=== PATIENT | male | born 1970 | race Caucasian/White ===

== ENCOUNTER 2019-01-14 10:24 | Emergency (ER) | payer OTHER ==
[2019-01-14 10:55] VITALS: TEMP 98.6; BMI 29.1
[2019-01-14 12:26] LABS: BASO % 1.2 % (0-2.0); EOS % 2.2 % (0-4.5); HEMATOCRIT 46.4 % (35.4-49); HEMOGLOBIN 15.5 GM/dL (11.7-16.9); LYMPH % 30.6 % (8-40); MCH 29.7 pg (25.7-33.7); MCHC 33.3 g/dl (32.0-35.9); MEAN CELL VOLUME 89.3 fl (80-96); MEAN PLT VOLUME 8.2 fl (7.5-11.1); MONO % 5.5 % (3.8-10.2); NEUT % 60.5 % (42.8-82.8); PLATELET COUNT 374 K/MM3 (134-434); RDW 13.7 % (11.9-15.9); WHITE BLOOD COUNT 6.9 K/mm3 (4.0-10.0)
[2019-01-14 12:33] LABS: PH,URINE 5.5 (5.0-8.0); URINE APPEARANCE CLEAR; URINE BILIRUBIN NEGATIVE (NEGATIVE); URINE COLOR YELLOW; URINE GLUCOSE (UA) NEGATIVE (NEGATIVE); URINE KETONE NEGATIVE (NEGATIVE); URINE LEUK ESTERASE NEGATIVE (NEGATIVE); URINE NITRITE NEGATIVE (NEGATIVE); URINE PROTEIN NEGATIVE (NEGATIVE); URINE UROBILINOGEN 0.2 mg/dL (0.2-1.0)
[2019-01-14 12:40] LABS: COCAINE, UR NEGATIVE ng/ml (CUTOFF=300); METHADONE, UR NEGATIVE ng/ml (CUTOFF=300); OPIATES, URI NEGATIVE ng/ml (CUTOFF=300); PHENCYCLIDINE,URINE NEGATIVE ng/ml (CUTOFF=25); URINE AMPHETAMINES NEGATIVE ng/ml (CUTOFF=500); URINE BARBITURATES NEGATIVE ng/ml (CUTOFF=200); URINE BENZODIAZEPINES NEGATIVE ng/ml (CUTOFF=200)
[2019-01-14 12:41] LABS: INR 1.1 (0.83-1.09)
[2019-01-14 13:00] LABS: ALBUMIN 3.8 g/dl (3.4-5.0); ALK PHOS 137 U/L (45-117); ANION GAP 6 MMOL/L (8-16); BILIRUBIN,TOTAL 0.2 mg/dL (0.2-1); BLOOD UREA NITROGEN 24 mg/dL (7-18); CALCIUM 9.3 mg/dL (8.5-10.1); CHLORIDE 106 mmol/L (98-107); CO2 26 mmol/L (21-32); CREATININE 0.9 mg/dL (0.55-1.3); GLUCOSE,RANDOM 100 mg/dL (74-106); MAGNESIUM 2.6 mg/dL (1.8-2.4); POTASSIUM 4.4 mmol/L (3.5-5.1); SGOT/AST 10 U/L (15-37); SGPT/ALT 36 U/L (13-61); SODIUM 138 mmol/L (136-145); TOT PROT 7.8 g/dl (6.4-8.2)
--- NOTE | 2019-01-14 13:10 | EKG ---
Test Reason : Blood Pressure : / mmHG Vent. Rate : 065 BPM Atrial Rate : 065 BPM P-R Int : 158 ms QRS Dur : 090 ms QT Int : 374 ms P-R-T Axes : 040 -21 -02 degrees QTc Int : 388 ms NORMAL SINUS RHYTHM INFERIOR INFARCT , AGE UNDETERMINED ABNORMAL ECG NO PREVIOUS ECGS AVAILABLE Confirmed by TRISHA ORANTES MD ([id number]) on 01/14/2019 1:10:29 PM Referred By: MR Confirmed By:TRISHA ORANTES MD
--- NOTE | 2019-01-14 15:16 | PDOC ---
History of Present Illness - General Chief Complaint: Back Pain Stated Complaint: BACK PAIN Time Seen by Provider: 01/14/19 11:22 History Source: Patient Exam Limitations: No Limitations - History of Present Illness Initial Comments: 01/14/19 14:21 48-year-old male with history of chronic low back pain and dyslipidemia presents to ED for "checkup". Patient states actively uses cocaine and frequently is concern about illnesses and cardiac disease due to his lifestyle. Patient has no specific complaint currently including chest pain, palpitations, headache, difficulty breathing, change in bowel or change in urine pattern. Patient also denies lower extremity edema and states has not seen a doctor in over a year. Patient became concerned when he he attended a friend's over the past few weeks after overdosing. Timing/Duration: other Associated Symptoms: reports: denies symptoms Past History - Travel Traveled outside of the country in the last 30 days: No Close contact w/someone who was outside of country & ill: No - Past Medical History Allergies/Adverse Reactions: Allergies Allergy/AdvReac Type Severity Reaction Status Date / Time No Known Allergies Allergy Verified 01/14/19 10:55 Home Medications: Ambulatory Orders Atorvastatin Ca [Lipitor] 10 mg PO HS 01/14/19 COPD: No - Immunization History Immunization Up to Date: (UNKNOWN) - Suicide/Smoking/Psychosocial Hx Smoking History: Never smoked Hx Alcohol Use: No Drug/Substance Use Hx: No Patient Lives Alone: No Lives with/in: spouse/SO Review of Systems - Review of Systems Able to Perform ROS?: Yes Constitutional: No: Symptoms Reported HEENTM: No: Symptoms Reported Respiratory: No: Symptoms reported Cardiac (ROS): No: Symptoms Reported ABD/GI: No: Symptoms Reported : No: Symptoms Reported Musculoskeletal: Yes: Back Pain Integumentary: No: Symptoms Reported Neurological: No: Symptoms reported Psychiatric: Yes: Anxiety, Stressors Hematologic/Lymphatic: No: Symptoms Reported *Physical Exam - Vital Signs Last Vital Signs Temp Pulse Resp BP Pulse Ox 98.6 F 75 17 102/72 98 01/14/19 10:50 01/14/19 12:11 01/14/19 12:11 01/14/19 12:11 01/14/19 12:11 - Physical Exam General Appearance: Yes: Nourished, Appropriately Dressed. No: Apparent Distress HEENT: positive: Pharynx Normal. negative: Pale Conjunctivae Neck: positive: Normal Thyroid, Supple Respiratory/Chest: positive: Lungs Clear, Normal Breath Sounds. negative: Chest Tender, Respiratory Distress, Accessory Muscle Use Cardiovascular: positive: Regular Rhythm, Regular Rate. negative: Murmur Gastrointestinal/Abdominal: positive: Soft. negative: Tenderness Musculoskeletal: negative: CVA Tenderness Extremity: positive: Normal Capillary Refill. negative: Pedal Edema Integumentary: positive: Normal Color, Warm, Moist Neurologic: positive: Motor Strength 5/5 (ambulatory). negative: Normal Mood/ Affect (anxious) Heart Score/ECG Review - ECG Intrepretation Rhythm: Regular Rhythm (Rate 65 normal sinus rhythm. Intervals are regular. No ST elevation or depression.) ED Treatment Course - LABORATORY CBC & Chemistry Diagram: 01/14/19 12:06 01/14/19 12:06 - ADDITIONAL ORDERS Additional order review: Laboratory Results 01/14/19 01/14/19 01/14/19 12:06 12:06 12:06 PT with INR INR Sodium 138 Potassium 4.4 Chloride 106 Carbon Dioxide 26 Anion Gap 6 L BUN 24 H Creatinine 0.9 Est GFR (CKD-EPI)AfAm 117.47 Est GFR (CKD-EPI)NonAf 101.35 Random Glucose 100 Calcium 9.3 Magnesium 2.6 H Total Bilirubin 0.2 AST 10 L ALT 36 Alkaline Phosphatase 137 H Creatine Kinase 104 Troponin I < 0.02 Total Protein 7.8 Albumin 3.8 Urine Color Yellow Urine Appearance Clear Urine pH 5.5 Ur Specific [place] 1.022 Urine Protein Negative Urine Glucose (UA) Negative Urine Ketones Negative Urine Blood Negative Urine Nitrite Negative Urine Bilirubin Negative Urine Urobilinogen 0.2 Ur Leukocyte Esterase Negative Opiates Screen Negative Methadone Screen Negative Barbiturate Screen Negative Phencyclidine Screen Negative Ur Amphetamines Screen Negative MDMA (Ecstasy) Screen Negative Benzodiazepines Screen Negative Cocaine Screen Negative U Marijuana (THC) Screen Negative 01/14/19 12:06 PT with INR 13.00 INR 1.10 H Sodium Potassium Chloride Carbon Dioxide Anion Gap BUN Creatinine Est GFR (CKD-EPI)AfAm Est GFR (CKD-EPI)NonAf Random Glucose Calcium Magnesium Total Bilirubin AST ALT Alkaline Phosphatase Creatine Kinase Troponin I Total Protein Albumin Urine Color Urine Appearance Urine pH Ur Specific [place] Urine Protein Urine Glucose (UA) Urine Ketones Urine Blood Urine Nitrite Urine Bilirubin Urine Urobilinogen Ur Leukocyte Esterase Opiates Screen Methadone Screen Barbiturate Screen Phencyclidine Screen Ur Amphetamines Screen MDMA (Ecstasy) Screen Benzodiazepines Screen Cocaine Screen U Marijuana (THC) Screen 01/14/19 12:06 RBC 5.20 MCV 89.3 MCHC 33.3 RDW 13.7 MPV 8.2 Neutrophils % 60.5 Lymphocytes % 30.6 Monocytes % 5.5 Eosinophils % 2.2 Basophils % 1.2 Medical Decision Making - Medical Decision Making 01/14/19 14:29 Plan: Patient concerned for his health since he went to 2 friend's recently due to overdosing from cocaine which he actively uses. Exam. Blood pressure initially elevated in triage. Repeated 2 and within normal limits. Extremely anxious upon my arrival Plan: Labs EKG chest x-ray and urine ordered 01/14/19 15:31 Selected Entries 01/14/19 01/14/19 12:11 15:21 Blood Pressure 102/72 107/69 [Right Arm] 01/14/19 15:31 Laboratory Tests 01/14/19 01/14/19 01/14/19 12:06 12:06 12:06 WBC 6.9 Hgb 15.5 Hct 46.4 Absolute Neuts (auto) 4.2 PT with INR 13.00 INR 1.10 H Sodium 138 Potassium 4.4 Chloride 106 Carbon Dioxide 26 Anion Gap 6 L BUN 24 H Creatinine 0.9 Random Glucose 100 Calcium 9.3 AST 10 L ALT 36 Alkaline Phosphatase 137 H Creatine Kinase 104 Troponin I < 0.02 Total Protein 7.8 Albumin 3.8 Urine Ketones Urine Bilirubin Ur Leukocyte Esterase Opiates Screen Methadone Screen Barbiturate Screen Phencyclidine Screen Ur Amphetamines Screen MDMA (Ecstasy) Screen Benzodiazepines Screen Cocaine Screen U Marijuana (THC) Screen 01/14/19 01/14/19 12:06 12:06 WBC Hgb Hct Absolute Neuts (auto) PT with INR INR Sodium Potassium Chloride Carbon Dioxide Anion Gap BUN Creatinine Random Glucose Calcium AST ALT Alkaline Phosphatase Creatine Kinase Troponin I Total Protein Albumin Urine Ketones Negative Urine Bilirubin Negative Ur Leukocyte Esterase Negative Opiates Screen Negative Methadone Screen Negative Barbiturate Screen Negative Phencyclidine Screen Negative Ur Amphetamines Screen Negative MDMA (Ecstasy) Screen Negative Benzodiazepines Screen Negative Cocaine Screen Negative U Marijuana (THC) Screen Negative pt remains asymptomatic, ate, and requesting to go home. *DC/Admit/Observation/Transfer Diagnosis at time of Disposition: Chronic back pain - Discharge Dispostion Disposition: HOME Condition at time of disposition: Good - Referrals Referrals: Cassie Escamilla MD [Primary Care Provider] - - Patient Instructions Printed Discharge Instructions: Heart-Healthy Diet Additional Instructions: Your blood work and urine were negative. Chest x-ray also was negative. I do recommend adding exercise to your lifestyle and avoid illicit drug use. - Post Discharge Activity
[2019-01-14 15:22] VITALS: BP 107/69; PULSE 74
== END 2019-01-14 15:23 | disposition home or self-care (01) ==
LOC: JER 10:24
DX: M54.89 Other dorsalgia (principal); G89.29 Other chronic pain; E78.5 Hyperlipidemia, unspecified
CPT/HCPCS: 36415; 71046-TC-FY; 80053; 80307; 81003; 82550; 83735; 84484; 85025; 85610; 93005; 93010; 99282-25

== ENCOUNTER 2019-07-28 10:38 | Emergency (ER) | payer SELFPAY ==
[2019-07-28 10:48] VITALS: BP 119/77; PULSE 80; TEMP 98.3; BMI 25.0
--- NOTE | 2019-07-28 11:48 | PDOC ---
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 Past History - Past Medical History Allergies/Adverse Reactions: Allergies Allergy/AdvReac Type Severity Reaction Status Date / Time No Known Allergies Allergy Verified 07/28/19 10:48 Home Medications: Ambulatory Orders Atorvastatin Ca [Lipitor] 10 mg PO HS 01/14/19 Cyclobenzaprine HCl [Flexeril 10 mg] 10 mg PO HS PRN #10 tablet 07/28/19 Ibuprofen [Motrin -] 600 mg PO TID #30 tablet 07/28/19 COPD: No - Immunization History Immunization Up to Date: (UNKNOWN) - Psycho Social/Smoking Cessation Hx Smoking History: Never smoked Information on smoking cessation initiated: No Hx Alcohol Use: No Drug/Substance Use Hx: No Review of Systems - Review of Systems Constitutional: No: Fever Cardiac (ROS): No: Chest Pain Musculoskeletal: Yes: Back Pain *Physical Exam - Vital Signs Last Vital Signs Temp Pulse Resp BP Pulse Ox 98.3 F 80 19 119/77 98 07/28/19 10:47 07/28/19 10:47 07/28/19 10:47 07/28/19 10:47 07/28/19 10:47 - Physical Exam 07/28/19 11:47 GENERAL: The patient is awake, alert, and fully oriented, in no acute distress. HEAD: Normal with no signs of trauma. EYES: sclera anicteric, conjunctiva clear. NECK: Normal range of motion LUNGS: Breath sounds equal, clear to auscultation bilaterally. No wheezes, and no crackles. Mild left-sided rib and parathoracic musculature tenderness spasm also felt HEART: S1 and S2 without murmur, rub or gallop. ABDOMEN: Soft, nontender, normoactive bowel sounds. No guarding, no rebound. No masses. EXTREMITIES: Normal range of motion, no edema. No clubbing or cyanosis. No cords, erythema, or tenderness. NEUROLOGICAL: Cranial nerves II through XII grossly intact. Normal speech, normal gait. PSYCH: Normal mood, normal affect. SKIN: Warm, Dry, normal turgor, no rashes or lesions noted. ED Treatment Course - RADIOLOGY Radiology Studies Ordered: Category Date Time Status CHEST - PA [RAD] Stat Radiology 07/28/19 11:15 Taken RIBS-LEFT SIDE [RAD] Stat Radiology 07/28/19 11:15 Taken Medical Decision Making - Medical Decision Making 07/28/19 11:47 Chest x-ray is normal no fracture on rib x-rays Flexeril Motrin follow-up with primary care physician for thoracic spine strain Discharge - Discharge Information Problems reviewed: Yes Clinical Impression/Diagnosis: Strain of mid-back Condition: Stable Disposition: HOME - Admission No - Additional Discharge Information Prescriptions: Cyclobenzaprine HCl [Flexeril 10 mg] 10 mg PO HS PRN #10 tablet PRN Reason: Muscle Spasms Ibuprofen [Motrin -] 600 mg PO TID #30 tablet - Follow up/Referral Referrals: Shaw Nathan MD [Staff Physician] - - Patient Discharge Instructions Additional Instructions: Please take the Motrin and the Flexeril as directed. Discontinue the Motrin if it bothers her stomach. Return to the emergency room for worsening symptoms. Without fail please follow-up with your primary care physician in 2 to 3 days for further evaluation and treatment options. - Post Discharge Activity Work/Back to School Note: Back to Work
== END 2019-07-28 12:23 | disposition home or self-care (01) ==
LOC: JERFT 10:38
DX: M54.6 Pain in thoracic spine (principal); E78.5 Hyperlipidemia, unspecified
CPT/HCPCS: 71045-TC-FY; 71101-TC-LT-FY; 99282-25

== ENCOUNTER 2019-10-17 22:28 | Emergency (ER) | payer SELFPAY ==
[2019-10-17 23:17] VITALS: TEMP 97.3; BMI 29.1
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
[2019-10-18] MEDS ORDERED: ACETAMINOPHEN 1000 MG/100 ML VIAL (NON FORMULARY) IVPB ONE ×2 (00:56→05:23)
[2019-10-18] MEDS ORDERED: ACETAMINOPHEN INJECTION 100 ML IVPB ONE ×2 (01:07→05:23)
[2019-10-18 01:19] LABS: BASO % 0.4 % (0-2.0); EOS % 0.3 % (0-4.5); HEMATOCRIT 42.1 % (35.4-49); HEMOGLOBIN 14.4 GM/dL (11.7-16.9); LYMPH % 7.2 % (8-40); MCH 30.6 pg (25.7-33.7); MCHC 34.1 g/dl (32.0-35.9); MEAN CELL VOLUME 89.8 fl (80-96); MEAN PLT VOLUME 8.4 fl (7.5-11.1); MONO % 7.1 % (3.8-10.2); PLATELET COUNT 194 K/MM3 (134-434); RBC 4.69 M/mm3 (4.00-5.60); RDW 13.8 % (11.9-15.9); WHITE BLOOD COUNT 15.1 K/mm3 (4.0-10.0)
[2019-10-18 01:33] LABS: INR 1.12 (0.83-1.09); PROTHROMBIN TIME (PATIENT) 13.2 SEC (9.7-13.0)
[2019-10-18 01:45] LABS: ALBUMIN 3.8 g/dl (3.4-5.0); ALK PHOS 112 U/L (45-117); ANION GAP 6 MMOL/L (8-16); BILIRUBIN,TOTAL 0.2 mg/dL (0.2-1); BLOOD UREA NITROGEN 19.7 mg/dL (7-18); CHLORIDE 107 mmol/L (98-107); CO2 25 mmol/L (21-32); GLUCOSE,RANDOM 123 mg/dL (74-106); SGOT/AST 16 U/L (15-37); SGPT/ALT 41 U/L (13-61); SODIUM 138 mmol/L (136-145); TOT PROT 6.9 g/dl (6.4-8.2)
[2019-10-18] MEDS ORDERED: LIDOCAINE 1%/EPI 1:100000 (20 ML MULTI DOSE VIAL) ONE (04:17)
[2019-10-18] MEDS ORDERED: LIDOCAINE 2%/EPINEPHRINE 1:100000 (50 ML MD VIAL) INF ONE (04:17)
[2019-10-18 05:11] VITALS: BP 117/74; PULSE 96
--- NOTE | 2019-10-18 09:11 | EKG ---
Test Reason : Blood Pressure : / mmHG Vent. Rate : 090 BPM Atrial Rate : 090 BPM P-R Int : 164 ms QRS Dur : 084 ms QT Int : 346 ms P-R-T Axes : 028 -17 -07 degrees QTc Int : 423 ms NORMAL SINUS RHYTHM NONSPECIFIC T WAVE ABNORMALITY ABNORMAL ECG WHEN COMPARED WITH ECG OF 14-JAN-2019 11:40, NO SIGNIFICANT CHANGE WAS FOUND Confirmed by Lindsay Randall ([id number]) on 10/18/2019 9:11:30 AM Referred By: Confirmed By:Lindsay Randall
== END 2019-10-18 06:06 | disposition home or self-care (01) ==
LOC: JER 22:28
PROC: 3E033NZ Introduction of Analgesics, Hypnotics, Sedatives into Peripheral Vein, Percutaneous Approach (ICD-10-PCS; principal; 2019-10-17)
PROC: 3E023BZ Introduction of Anesthetic Agent into Muscle, Percutaneous Approach (ICD-10-PCS; 2019-10-17)
DX: M25.062 Hemarthrosis, left knee (principal); V29.88XA Motorcycle rider (driver) (passenger) injured in other specified transport accidents, initial encounter; Y92.414 Local residential or business street as the place of occurrence of the external cause; Y93.89 Activity, other specified; Y99.8 Other external cause status; Z87.891 Personal history of nicotine dependence
CPT/HCPCS: 36415; 75635-TC; 80053; 82550; 82553; 84484; 85025; 85610; 86850; 86900; 86901; 93005; 93010; 99285-25; J0131; Q9967